=== PATIENT | male | born 1955 | race Caucasian/White ===

== ENCOUNTER → 2020-05-20 10:08 | Outpatient (CLI) | payer OTHER, SELFPAY ==
--- NOTE | 2020-05-20 10:13 | ECHOD_ITS ---
Reason For Study: Hx COVID 19, Dyspnea Procedure Patient very SOB and suffers vison/hearing loss since being diagnosed with COVID 19 in March 2020. Exam performed in department. Left Ventricle Normal LV size. Left ventricular systolic function is normal. The estimated ejection fraction is 60 %. No evidence for diastolic dysfunction. No regional wall motion abnormalities noted. Right Ventricle Normal RV size. Normal systolic function. Atria Normal left atrium. Normal right atrium. No doppler evidence for ASD. Mitral Valve There is no mitral annular calcification. Mild diffuse mitral valve thickening. Mild (1+) mitral valve insufficiency. Tricuspid Valve Normal tricuspid valve. Trivial tricuspid valve insufficiency. Right ventricular systolic pressure estimated to be 29 mmHg. Aortic Valve Trisinus/trileaflet aortic valve. Mild diffuse aortic valve thickening. Trivial aortic valve insufficiency. Pulmonic Valve The pulmonic valve is not well visualized. Trivial pulmonic valve insufficiency. Great Vessels Normal sized aortic root. Pericardium/Pleural No pericardial effusion. MMode/2D Measurements & Calculations LVIDd: 4.9 cm IVSd: 0.88 cm Ao root diam: 3.6 cm LVIDs: 3.2 cm LVPWd: 0.80 cm LA dimension: 3.1 cm FS: 34.5 % LAV(MOD-bp): 32.2 ml LA A4 area: 11.0 cm2 LAV(MOD-bp) Indexed: 16.8 ml/m2 LAV(MOD-sp2): 40.1 ml LAV(MOD-sp4): 23.5 ml Time Measurements MV dec time: 0.28 sec Doppler Measurements & Calculations MV E max adin: 51.8 cm/sec Lat Peak E' Adin: 9.2 cm/sec Med Peak E' Adin: 5.5 cm/sec MV A max adin: 78.3 cm/sec E/E' lat: 5.6 E/E' med: 9.4 MV E/A: 0.66 MV V2 max: 70.7 cm/sec MV P1/2t max adin: 56.9 cm/sec Ao V2 max: 103.5 cm/sec MV max P.0 mmHg MV P1/2t: 99.6 msec Ao max P.3 mmHg MV V2 mean: 42.4 cm/sec MV dec slope: 167.4 cm/sec2 MV mean P.83 mmHg MVA(P1/2t): 2.2 cm2 MV V2 VTI: 17.8 cm LV V1 max: 88.6 cm/sec PA V2 max: 98.2 cm/sec TR max adin: 256.6 cm/sec LV V1 max P.1 mmHg TR max P.3 mmHg Interpretation Summary Left ventricular systolic function is normal. The estimated ejection fraction is 60 %. Mild diffuse mitral valve thickening. Mild (1+) mitral valve insufficiency. Trivial tricuspid valve insufficiency. Mild diffuse aortic valve thickening. Trivial aortic valve insufficiency. Trivial pulmonic valve insufficiency. Right ventricular systolic pressure estimated to be 29 mmHg. No evidence for diastolic dysfunction. Ordering Physician: Zain Powers Referring Physician: Zain Perdomo Performed By: Yoel Davis RCS
== END ==
PROVIDERS: PCP Family Medicine; Referring Provider Internal Medicine Pulmonary Disease; Visit Provider Internal Medicine Pulmonary Disease
DX: R06.00 Dyspnea, unspecified (principal); J44.9 Chronic obstructive pulmonary disease, unspecified
CPT/HCPCS: 93306

== ENCOUNTER → 2020-06-10 12:24 | Outpatient (CLI) | payer OTHER, SELFPAY ==
--- NOTE | 2020-06-10 12:32 | RAD_ITS ---
STUDY: X-RAY CHEST REASON FOR EXAM: Male, 64 years old. DYSPNEA, COUGH -- HAD COVID TECHNIQUE: PA and lateral views of the chest. COMPARISON: None. FINDINGS: The lungs are clear and expanded. There is no demonstrated pleural abnormality. Normal size heart. Normal mediastinum and saul. Normal visualized pulmonary arteries. Normal visualized aortic arch and descending thoracic aorta. Normal visualized thoracic spine. Normal visualized ribs, clavicles, and shoulders. There is no demonstrated abnormality of the visualized soft tissue structures of the upper abdomen. RAD/Chest PA and Lateral IMPRESSION: Normal x-ray examination of the chest. Electronically Signed: Chris Garcia MD at 9:16 EST Tel , Service support ,
== END ==
PROVIDERS: PCP Family Medicine; Referring Provider Internal Medicine Pulmonary Disease; Visit Provider Internal Medicine Pulmonary Disease
DX: R06.00 Dyspnea, unspecified (principal); R05 Cough
CPT/HCPCS: 71046